=== PATIENT | male | born 1950 | race Hispanic/Latino ===

== ENCOUNTER → 2016-12-03 | Outpatient (CLI) | payer MEDICARE, OTHER | END | disposition home or self-care (01) | LOC: GMAL 10:11 | PROVIDERS: ATTEND Family Medicine | DX: D51.3 Other dietary vitamin B12 deficiency anemia (principal) ==

== ENCOUNTER 2017-04-15 17:51 | Inpatient (IN) | payer MEDICARE, OTHER ==
--- NOTE | 2017-04-15 17:53 | HP ---
HISTORY OF PRESENT ILLNESS: This 66 year-old male is a direct admission from Dr. Merlos' clinic where the patient was found to be quite light-headed getting worse for the last 3 days. He has had some bright red blood per rectum initially and then changing to dark bloody bowel movements for the last 3 days. He has had an episode of bleeding like this in years past but not recently. In the clinic, Dr. Merlos found that his blood pressure would drop about 18 points when he stood from a lying position and his pulse would increase by 10 points suggesting a borderline positive tilt test. His hemoglobin was 11.5 which is approximately 25% below his normal blood count. He has had a significant history of heart disease in the past and he does take a half of an aspirin daily which is now stopped. He is seen by Dr. Barrett, Materials Handler, in [place]. The patient is admitted to the hospital after discussion with Dr. Pichardo, GI specialist, who will be at the [facility] tomorrow morning. It is at that time that they are anticipating to do an upper and lower endoscopy. He has had a colonoscopy about 3 years ago and was scheduled for another one and there were no significant abnormalities at that time. PAST MEDICAL HISTORY: 1. Coronary artery disease with a myocardial infarction about 11 years ago requiring eventually 4 stents. 2. History of transient dark bowel movements and possible blood in the past years ago but no significant history of anemia. 3. History of chronic tobacco abuse having stopped smoking about 11 years ago but now still dipping snuff. 4. History of colonoscopy about 3 years ago. PAST SURGICAL HISTORY: CURRENT MEDICATIONS: Please refer to nurses' notes for a list of verified home medications. ALLERGIES: NONE NOTED. FAMILY HISTORY: Positive for coronary artery disease, emphysema, cancer and diabetes. 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 He stopped smoking about 11 years ago but has been using some snuff and dip since then, and encouraged to stop. REVIEW OF SYSTEMS: Some weight loss noted recently, especially when he had a tendency towards diabetes and he lost about 12 pounds in 1 week. No significant fever or chills. HEENT: Hearing and vision seems to be fairly normal. LUNGS: No significant shortness of breath, cough or hemoptysis. CARDIOVASCULAR: No significant chest pains or palpitations but he is quite light-headed for the last 3 days. GASTROINTESTINAL: No nausea, vomiting or blood in the emesis, but he has had some bright red bleeding and turning to black bowel movements for the last 3 days. GENITOURINARY: No dysuria. EXTREMITIES: No pedal edema. NEUROLOGIC: No focal weakness. No headaches. PHYSICAL EXAMINATION: VITAL SIGNS: See vitals and see weight when entered into the chart. HEENT: Unremarkable. Slight paleness of the conjunctiva. NECK: Supple with no adenopathy. CHEST: Lungs are generally clear to auscultation. CARDIOVASCULAR: Heart tones regular. Borderline tilt blood pressure in Dr. Merlos' office noted. ABDOMEN: No significant tenderness upon palpation, but the patient feels that there could be some slight abnormality, especially in the region of the stomach versus other parts of his abdomen. He has not had a bowel movement since coming into the hospital. EXTREMITIES: Well formed, good range of motion. Fairly good muscle tone evident. No pedal edema. NEUROLOGIC: No focal weakness. The patient is awake, alert and oriented, and communicative. General coloration generally within normal limits, though slightly pale on the conjunctiva. LABORATORY: Only laboratory results available at this time is the hemoglobin which was 11.[address] Merlos' clinic. Other studies are pending. Please refer to Orders and laboratory results. Chest x-ray is pending. EKG is pending. ASSESSMENT: 1. Acute gastrointestinal hemorrhage initially with hematochezia turning to melenic stool suggesting an upper gastrointestinal hemorrhage. 2. Significant anemia suggesting an approximate 25% of blood volume loss up to this point awaiting further studies to include kidney function and bleeding parameters. 3. History of coronary artery disease with at least 4 coronary stents and 1 or even 2 myocardial infarctions in close proximity about 11 years ago at which time his tobacco smoking stopped. 4. Moderate postural hypotension possibly related to a fairly significant gastrointestinal hemorrhage. 5. Probable renal insufficiency. PLAN: The patient is admitted to the hospital and will require support and close observation. He will notify us immediately if symptoms of light- headedness or near syncopal episodes are present and/or worsening. Await further gastrointestinal evaluation in the morning with endoscopy. Prep to be NPO after midnight with magnesium citrate to be given as a general prep as clear liquids are also offered for supper this evening. observe closely and refer for GI evaluation if GI bleeding is aggravated. Observe for H. pylori infection. #[id number] [facility]
[2017-04-15] MEDS ORDERED: SODIUM CHLORIDE 0.9% (FLUSH) 10 ML SYG IV PRN (18:28)
[2017-04-15] MEDS ORDERED: HYDROcodone 5MG/APAP 325MG 1 EA TAB PO PRN (18:31)
[2017-04-15] MEDS ORDERED: MAGNESIUM CITRATE 300 ML BTTL PO ONE (18:40)
[2017-04-15] MEDS ORDERED: IV SET AND CAP CHANGE INJ INJ SCH (19:00)
[2017-04-15] MEDS ORDERED: PANTOPRAZOLE SODIUM IV 40 MG VIAL IV SCH (19:00)
--- NOTE | 2017-04-15 19:07 | RAD ---
EXAM DESCRIPTION: Chest,2 Views CLINICAL HISTORY: 66 years Male GI Hemorrhage COMPARISON: None. FINDINGS: The cardiomediastinal silhouette appears unremarkable. No consolidating infiltrates or pleural effusions. No pneumothorax. Hemidiaphragms are flattened consistent with COPD. Coronary stents and calcification noted. IMPRESSION: No acute abnormality is identified. Pulmonary hyperinflation consistent with COPD Electronically signed by: Whitley Villaseñor 04/15/2017 7:05 PM CDT
[2017-04-15] MEDS ORDERED: SUCRALFATE 1 GM TAB PO ONE (19:26)
[2017-04-15] MEDS: SUCRALFATE 1 GM/10 ML 1 GM UD PO SCH ×2 (19:32→20:36)
[2017-04-15] MEDS: LEVALBUTEROL NEBS 1.25 MG/3 ML VIAL INH SCH ×2 (20:10→23:58)
[2017-04-15] MEDS ORDERED: SODIUM CHLORIDE 0.9% 500ML 500 ML IVS ONE (22:46)
[2017-04-15] MEDS: KCL 20 MEQ/NS 1,000 ML IVS PRN (23:26)
[2017-04-16] MEDS: KCL 20 MEQ/NS 1,000 ML IVS PRN ×2 (08:14→16:46)
[2017-04-16] MEDS: LEVALBUTEROL NEBS 1.25 MG/3 ML VIAL INH SCH (08:27)
[2017-04-16] MEDS ORDERED: PROPOFOL 200 MG/20 ML VIAL IV ONE (11:00)
[2017-04-16] MEDS ORDERED: LIDOCAINE 1% 10 ML VIAL INJ ONE (11:00)
--- NOTE | 2017-04-16 13:03 | OP ---
DATE OF PROCEDURE: 04/16/17 PREOPERATIVE DIAGNOSIS: 1. Hematochezia. 2. Gastrointestinal blood loss anemia. POSTOPERATIVE DIAGNOSIS: 1. Internal hemorrhoids. 2. Sigmoid diverticulosis. PROCEDURE: 1. Colonoscopy. SURGEON: Pola Pichardo MD. COMPLICATIONS: None apparent. BLOOD LOSS: None. MEDICATIONS: Monitored anesthesia care. DESCRIPTION OF PROCEDURE: Informed consent was obtained prior to sedation. The preprocedure cardiopulmonary assessment was satisfactory. The patient was placed in the left lateral decubitus position and was sedated. A digital rectal exam reveals no rectal masses or other abnormalities. His prostate is appropriately sized for his age. The tip of the Olympus colonoscope was inserted in the rectum and guided over to the cecum. The cecum was identified by locating the ileocecal valve and appendiceal orifice. Prep was overall satisfactory. There were a few areas of some residual semi-solid stool that I was able to irrigate and suction away to allow for good visibility. There was no red blood in the colon. There was no melena in the colon. The ileocecal valve was intubated and the terminal ileum was clear without any evidence of bloody material. The mucosa of the cecum, ascending colon, hepatic flexure, transverse colon, splenic flexure, descending colon and sigmoid colon was closely examined. The patient has some diverticulosis scattered throughout the colon, predominantly on the left side. The patient has some internal hemorrhoids. Otherwise, his colonoscopy was unremarkable. The procedure was then terminated. RECOMMENDATIONS: 1. I have discussed the findings with Dr. Yoni Merlos, his physician. I would advance his diet and give him a daily oral proton pump inhibitor just in case the bleeding was an upper source. 2. If the bleeding recurs or persists and it looks like it could be an upper source, then I would recommend an EGD. #[id number] cc: Yoni Merlos MD [facility]
[2017-04-16] MEDS: POTASSIUM CHLORIDE 10 MEQ TAB PO SCH ×2 (13:26→17:55)
[2017-04-16] MEDS: LEVALBUTEROL NEBS 1.25 MG/3 ML VIAL NEB SCH (16:43)
--- NOTE | 2017-04-16 18:33 | PN ---
DATE: 04/16/17 SUPERVISING PHYSICIAN: Ortega Bond M.D. SUBJECTIVE: The patient just returned from colonoscopy. He is alert in no distress. Has no nausea or vomiting. OBJECTIVE: VITAL SIGNS: Temperature 98.6, pulse 78, blood pressure 127/72, respirations 18, satting 98% on room air. I's and O's show a negative balance of 1100 with 400 in, 1500 out. Weight 69.6 kg. CHEST: Lungs are clear to auscultation bilaterally. HEART: Regular rate and rhythm. ABDOMEN: Soft, non- tender. Positive bowel sounds. EXTREMITIES: No clubbing, cyanosis or edema. NEUROLOGIC: He is alert and oriented times three. LABORATORY: White count today is 8.0, hemoglobin is down to 9.9, hematocrit 29.0, platelet count 169,000. Differential shows to be without a left shift now. Chemistries show normal electrolytes with potassium 3.7, BUN 38 compared to 59 on admission and creatinine is down to 1.05. Glucose 121, calcium 8.2. Lipid panel showed 172 on triglycerides, cholesterol 114, LDL 57, HDL 31. He has had 2 occult bloods that were positive and he has had H. pylori that was positive. PROCEDURES: Colonoscopy performed by Dr. Pola Pichardo. Please see his Operative Note for full details. RADIOLOGY: There are no additional radiographic studies for review. ASSESSMENT: 1. Hematochezia with some gastrointestinal blood loss and anemia with findings of internal hemorrhoids by colonoscopy. 2. Sigmoid diverticulosis without evidence of diverticulitis. 3. History of coronary artery disease with at least 4 coronary artery stents and 1 or 2 myocardial infarctions in close proximity within the last 11 years at which time his tobacco smoking ceased. 4. Moderate postural hypotension possibly related to fairly significant gastrointestinal hemorrhage although colonoscopy was essentially normal as noted on operative report. 5. Mild renal insufficiency secondary to prerenal azotemia, improved with IV fluids. PLAN: Will plan to advance his diet today as per recommendations of Dr. Pichardo and ensure that he remains on a daily oral proton pump inhibitor. Will continue to closely observe and repeat laboratory studies in the morning to further monitor H&H with anticipation of discharging him tomorrow to have close clinical followup with Dr. Merlos. Should he continue to show blood loss, Dr. Pichardo has recommended that the patient have an EGD. Until discharge, will continue to monitor and treat appropriately. [facility][id number] [facility]
[2017-04-16] MEDS ORDERED: PANTOPRAZOLE SODIUM IV 40 MG VIAL IV SCH (21:00)
[2017-04-16] MEDS ORDERED: POTASSIUM CHLORIDE 10 MEQ TAB PO ONE ×3 (21:00→23:00)
[2017-04-17] MEDS: LEVALBUTEROL NEBS 1.25 MG/3 ML VIAL NEB SCH ×2 (00:30→08:48)
[2017-04-17] MEDS: KCL 20 MEQ/NS 1,000 ML IVS PRN (01:07)
[2017-04-17] MEDS: POTASSIUM CHLORIDE 10 MEQ TAB PO SCH (07:36)
[2017-04-17 09:13] VITALS: BP 148/63; TEMP 98; O2SAT 98
--- NOTE | 2017-04-22 09:24 | DS ---
SUPERVISING PHYSICIAN: Ortega Bond MD DISCHARGE DIAGNOSIS: 1. Hematochezia with some gastrointestinal blood loss and anemia with findings of internal hemorrhoids by colonoscopy performed by Dr. Pichardo. 2. Sigmoid diverticulosis without evidence of diverticulitis. 3. History of coronary artery disease with at least 4 coronary artery stents and 1 or 2 myocardial infarctions in close proximity within the last 11 years at which time his tobacco smoking ceased. 4. Moderate postural hypotension, possibly related to fairly significant gastrointestinal hemorrhage although colonoscopy was essentially normal as noted on operative report and the patient had stable hemoglobin and hematocrit and had no recurrence of any hypotension. 5. Mild renal insufficiency secondary to prerenal azotemia, improved with IV fluids. HISTORY OF PRESENT ILLNESS: Mr. Kirk is a 66-year-old male who was a direct admission from Dr. Merlos' clinic where the patient was found to be quite light-headed getting worse for the previous 3 days. He had noted some bright red blood per rectum initially and then changing to dark bloody bowel movements for at least 3 days. He had had an episode of bleeding like this in years past , but not recently. In the clinic, Dr. Merlos found that his blood pressure would drop about 18 points when he stood from a lying position and his pulse would increase by 10 points suggesting a borderline positive tilt test. His hemoglobin was 11.5 which is approximately 25% below his normal blood count. He has had a significant history of heart disease in the past and he does take a half of an aspirin daily which is now stopped. He is seen by Dr. Barrett, historiography teacher, in [place]. The patient was admitted to the hospital per discussion with Dr. Pichardo, GI specialist, who performed a colonoscopy. His last colonoscopy was 3 years previous to this admission and at that time there were no significant abnormalities noted. LABORATORY: White count on admission was 10.9, at discharge was 7.8. Hemoglobin initially on admission was 11.3, hematocrit 33.5. At discharge, 9.0 and 27.0. Platelet count 161,000. Differential was without a left shift. Coagulation studies showed normal PT, PT-T. Chemistries showed normal electrolytes with initial BUN 59, creatinine 1.45 after fluids. At discharge, electrolytes were within normal limits. BUN 15, creatinine 0.91, glucose 102. Troponins were less than 0.02. Liver functions were within normal limits. Lipid panel showed triglycerides elevated at 172, cholesterol 114, LDL 57, HDL 31. Urinalysis was within normal limits. He had two positive occult bloods and positive H. pylori antibody. MICROBIOLOGY: No specimens submitted. CONSULTATIONS/PROCEDURES: Colonoscopy performed by Dr. Pichardo. Please see his operative report for full details and findings. HOSPITAL COURSE: Mr. Kirk was admitted to the hospital as noted in history of present illness for followup with Dr. Pichardo and colonoscopy. The patient remained stable. He did have several occult bloods positive, but no gross hematochezia and colonoscopy was performed without any complications. The patient remained stable after fluids. His blood pressure on admission initially was 128/66. At discharge, it was 148/63. Heart rate remained in 80s and 90s. He remained afebrile. T-max 98.6. It was felt hemoglobin and hematocrit were showing significant stability and based on colonoscopy findings , the patient was discharged to followup with Dr. Merlos. PLAN: Mr. Kirk was discharged on 04/17/17 to have close clinical followup with Dr. Merlos in 2 weeks. He was to resume his home medications as instructed and to no take any NSAIDs such as Motrin, aspirin or ibuprofen. He was to start new prescriptions as directed and return to the hospital should he have any return of his symptoms. DISCHARGE MEDICATIONS: 1. Proton pump inhibitor, Prilosec 20 mg twice daily, #60. All other medications were resumed as prior to admission. Diet at discharge was usual diet. Activity to increase as tolerated. Discharge condition was stable and improved. #[id number] [facility]
== END 2017-04-17 12:59 | disposition home or self-care (01) | DRG 378 ==
LOC: MS 17:51
PROVIDERS: ADMIT Emergency Medicine; ATTEND Nurse Practitioner Family
PROC: 0DJD8ZZ Inspection of Lower Intestinal Tract, Via Natural or Artificial Opening Endoscopic (ICD-10-PCS; principal; 2017-04-15)
DX: K92.1 Melena (principal); D62 Acute posthemorrhagic anemia; K64.8 Other hemorrhoids; K57.30 Diverticulosis of large intestine without perforation or abscess without bleeding; I25.10 Atherosclerotic heart disease of native coronary artery without angina pectoris; N28.9 Disorder of kidney and ureter, unspecified; I95.1 Orthostatic hypotension; B96.81 Helicobacter pylori [H. pylori] as the cause of diseases classified elsewhere; F17.290 Nicotine dependence, other tobacco product, uncomplicated; I25.2 Old myocardial infarction; Z79.82 Long term (current) use of aspirin; Z95.5 Presence of coronary angioplasty implant and graft

== ENCOUNTER → 2017-05-01 | Outpatient (CLI) | payer MEDICARE, OTHER | END | disposition home or self-care (01) | LOC: GMAL 10:26 | PROVIDERS: ATTEND Family Medicine | DX: D53.9 Nutritional anemia, unspecified (principal); M10.071 Idiopathic gout, right ankle and foot ==

== ENCOUNTER → 2017-06-17 | Outpatient (CLI) | payer MEDICARE, OTHER | END | disposition home or self-care (01) | LOC: GMAL 10:44 | PROVIDERS: ATTEND Family Medicine | DX: D53.9 Nutritional anemia, unspecified (principal); Z12.5 Encounter for screening for malignant neoplasm of prostate | CPT/HCPCS: 82728; 83540; 83550; G0103 ==

== ENCOUNTER → 2018-05-08 | Outpatient (CLI) | payer MEDICARE, OTHER ==
--- NOTE | 2018-05-08 16:01 | MRI ---
EXAM DESCRIPTION: Lumbar Spine w/o Contrast : Magnetic Resonance Imaging. CLINICAL HISTORY: RADICULOPATHY COMPARISON: None. TECHNIQUE: Multiplanar, multiple standard sequences, non contrast MRI, lumbar spine. FINDINGS: L5-S1: Minimal desiccation of the disc. Posterior midline tiny broad-based bulge abutting the thecal sac. Soft tissue density, possibly disc material extending into the left subarticular recess and abutting the descending left S1 nerve. Mild canal narrowing. Bilateral disc bulging into the foramina with mild narrowing on the left and moderate narrowing on the right. Minimal hypertrophy of the ligaments. L4-5: Disc desiccation and minimal disc space loss. Anterior disc bulge. Trace anterolisthesis. Bilateral flavum ligament hypertrophy. AP canal diameter 8 mm. Bulging disc is abutting the exiting right L4 nerve in the foramen which is nearly stenotic. Left foramen is patent. L3-4: Disc desiccation with anterior bulging and endplate ridging. Minimal disc space loss. Anterior Modic type II endplate reactive changes. Minimal flavum ligament hypertrophy posterior. Facets are unremarkable. Moderate canal narrowing. Bilateral foramina are patent. L2-3: Minimal disc desiccation. Tiny posterior bulge. Tiny anterior bulge. Posterior elements unremarkable. Canal and foramina are patent. L1-2: Normal signal in the disc. Disc space maintained. Posterior elements unremarkable. Canal and foramina are patent. T12-L1: Disc space maintained. Normal signal in the disc. Posterior elements unremarkable. Canal and foramina are patent. Conus terminates at this level. Anatomic curvature. Paravertebral soft tissues are negative. AP diameter of the aorta at the origin of the inferior mesenteric artery is 2.5 cm.. Normal marrow signal in the remaining vertebral bodies and the posterior elements. Vertebral bodies are not compressed at any level. IMPRESSION: 1. Desiccated bulging L5-S1 disc with possible focal inferior extrusion encroaching on the left subarticular recess and abutting this is impinging the descending left S1 nerve root. Bilateral disc bulge into the foramina. 2. Posterior element hypertrophy contributing to mild central canal stenosis at the L4-5 level. Trace anterolisthesis. 3. Anterior moderate spondylosis. No significant canal or foraminal narrowing. Electronically signed by: Preston South MD 05/08/2018 4:00 PM CDT
== END ==
LOC: MRI 06:52
PROVIDERS: ATTEND Family Medicine
DX: M51.16 Intervertebral disc disorders with radiculopathy, lumbar region (principal); M47.26 Other spondylosis with radiculopathy, lumbar region; M43.16 Spondylolisthesis, lumbar region

== ENCOUNTER → 2018-08-04 | Outpatient (CLI) | payer MEDICARE, OTHER | LOC: GMAL 11:35 | PROVIDERS: ATTEND Family Medicine | DX: Z12.5 Encounter for screening for malignant neoplasm of prostate (principal) ==

== ENCOUNTER → 2018-09-18 | Outpatient (CLI) | payer MEDICARE, OTHER | LOC: GMAL 10:30 | PROVIDERS: ATTEND Family Medicine | DX: M10.9 Gout, unspecified (principal) ==

== ENCOUNTER → 2019-07-06 | Outpatient (CLI) | payer MEDICARE, OTHER ==
--- NOTE | 2019-07-06 15:24 | CT ---
EXAM DESCRIPTION: CTA Neck: Computed Tomography. CLINICAL HISTORY: CAROTID STENOSIS COMPARISON: CTA neck September 2014. TECHNIQUE: Spiral, axial 2.5 x 2.5 mm scans through the neck soft tissues after bolus infusion of 100 mL Optiray 320 IV contrast. 2.0 mm sagittal and coronal reconstructions. HID MIP images 0.6 mm rotating axis 3D volume rendering images 0.6 mm rotating axis . Percentage of stenosis recorded will be based upon NASCET criteria. Total Exam DLP: 419.10 mGy-cm. This exam was performed according to our departmental CT dose-optimization program which includes automated exposure control, adjustment of the mA and/or kV according to patient size and/or use of iterative reconstruction technique; to reduce radiation dose to as low as reasonably achievable (ALARA). FINDINGS: Intermittent calcification in the left common carotid with intimal wall thickening. Multiple atherosclerotic calcifications at the bifurcation with diameter Stenosis at the bifurcation approximately 31 %. Minimal calcification in the proximal ECA is well. Minimal calcification in the distal left carotid siphon but no significant stenosis. Intracranial segment and bifurcation is unremarkable. Minimal atherosclerotic narrowing of these vessels without calcification. No posterior communicating artery is visualized. Typical origin of the right common carotid artery from the right innominate artery with scattered atherosclerotic calcification including the bifurcation and the proximal ICA. Diameter stenosis of the proximal right ICA is 47%. Minimal narrowing of the proximal right ECA. Minimal calcification in the distal carotid siphon. The cranial segment with minimal narrowing and bifurcation unremarkable. No calcifications. Posterior communicating artery joints with the right posterior cerebral artery from the basilar artery. Typical origins of the bilateral vertebral arteries from the subclavian arteries. Severe stenosis and calcification of the proximal right vertebral artery inferior to the bilateral vertebral foramen. Approximately 50% diameter stenosis of the left vertebral artery just before entering the left transverse foramen with bilateral atherosclerotic calcification in the foramina more on the left than right. Vertebral arteries are relatively symmetric entering the skull base. Bilateral PICA arteries, AICA arteries, and posterior cerebellar arteries visualized. Basilar artery supplies the left posterior cerebral artery and right posterior cerebral artery receives contributions from the right posterior communicating artery and the basilar artery. In the anterior and posterior circulation, no aneurysm, no significant stenosis, no mass effect, no vasculitis. Included apices of the bilateral lungs showing blebs and bulla abutting the pleura more on the right than left as well as centrilobular blebs. No abnormal soft tissue enhancement or adenopathy in the neck base, paracervical space, carotid space, or parapharyngeal space. Heterogeneous enhancement of the thyroid gland. Scattered lymph nodes bilaterally abutting the parotid and submandibular glands. The nasopharynx, oropharynx, hypopharynx, and larynx/glottis and upper trachea normal caliber with no effacement or abnormal enhancement or displacement. Arthrosis in the atlantoaxial joint and the bilateral atlantooccipital joints. No significant cervical spondylosis. Minimal anterior wedging of the C7 vertebral body with no posterior retropulsion or disc space loss. IMPRESSION: 1. No significant stenoses in the bilateral common carotid bifurcations, or bilateral ICA in the neck and head by NASCET criteria. Minimal atherosclerotic narrowing in the intracranial vault at the skull valley Zelaya. 2. Significant diameter stenosis, 75-100% in the proximal right vertebral artery with contrast reflux/reconstitution distal to the stenosis. Bilateral vertebral arteries symmetric in the skull base. Right posterior cerebral arteries supplied by branches from the basilar artery and right posterior communicating artery. No significant stenoses around the skull valley Zelaya, and no aneurysms, no mass effect, and no vasculitis, Electronically signed by: Preston South MD 07/06/2019 3:22 PM CDT
== END ==
LOC: CT 09:00
PROVIDERS: ATTEND Family Medicine
DX: I65.23 Occlusion and stenosis of bilateral carotid arteries (principal)

== ENCOUNTER → 2019-08-10 | Outpatient (CLI) | payer MEDICARE, OTHER | LOC: GMAL 11:25 | PROVIDERS: ATTEND Family Medicine | DX: Z12.5 Encounter for screening for malignant neoplasm of prostate (principal); I10 Essential (primary) hypertension; E78.49 Other hyperlipidemia; Z79.899 Other long term (current) drug therapy ==

== ENCOUNTER → 2020-02-18 | Outpatient (CLI) | payer MEDICARE, OTHER ==
--- NOTE | 2020-02-18 17:17 | MRI ---
EXAM DESCRIPTION: Cervical Spine CLINICAL HISTORY: RADICULOPATHY COMPARISON: CT neck Angio July 06, 2019 TECHNIQUE: MRI of the cervical spine is performed according to our usual protocol. FINDINGS: Sagittal T2 images reveal decreased signal intensity within the intervertebral discs. Normal T2 appearance of the cervical cord. Posterior discal abnormalities are mild at C5-6 and C6-7. Sagittal T1 images show benign marrow signal characteristics. Fragmented appearance of the tip of the dens appears chronic. Normal T1 appearance of the cervical and upper thoracic spinal cord. Normal alignment of the vertebral bodies and facets. Sagittal STIR images are negative for high signal intensity marrow edema within the vertebral bodies or posterior elements. No high signal intensity in the region of the dens to suggest that the deformity is not acute fracture. No paraspinous fluid collection or cystic lesion. Axial images were obtained to evaluate the disc levels. C2-3: Normal posterior disc margin with no spinal stenosis or neural foraminal narrowing. [id number] facet hypertrophic spurring bilaterally right more than left. Normal appearance of the cord at this level. C3-4: Mild posterior annular bulge without spinal stenosis. Moderate right neural foraminal narrowing related to facet and uncinate hypertrophic spurring. Left neural foramen is widely patent. Normal appearance of the cord at this level. C4-5: Minimal posterior annular bulge without spinal stenosis. Moderate right and mild left neural foraminal narrowing related to uncinate more than facet hypertrophic spurring. Normal appearance of the cord at this level. C5-6: Minimal posterior annular bulge with superimposed left paracentral protrusion measuring 2 mm in AP dimension with slight ventral cord contouring. No significant spinal stenosis with AP diameter of the spinal canal measuring 1 cm. Mild left neural foraminal narrowing related to uncinate hypertrophy. Minimal facet hypertrophic changes. C6-7: Minimally prominent posterior disc margin with no spinal stenosis. Minimal left neural foraminal narrowing related to uncinate hypertrophy. Normal appearance of the facets. Normal appearance of the cord at this level. C7-T1: Normal posterior disc margin with no spinal stenosis or significant neural foraminal narrowing. Facets appear normal. Normal appearance of the cord at this level. IMPRESSION: Small C5-C6 left paracentral disc protrusion 2 mm without significant spinal stenosis. Fragmented appearance of the tip of the dens consistent with old trauma. Electronically signed by: Rehan Sena MD 02/18/2020 5:15 PM CDT
== END ==
LOC: MRI 13:42
PROVIDERS: ATTEND Family Medicine
DX: M50.13 Cervical disc disorder with radiculopathy, cervicothoracic region (principal); M50.222 Other cervical disc displacement at C5-C6 level; M89.8X8 Other specified disorders of bone, other site

== ENCOUNTER → 2020-06-08 | Outpatient (CLI) | payer MEDICARE, OTHER | LOC: GMAL 11:59 | PROVIDERS: ATTEND Family Medicine | DX: I10 Essential (primary) hypertension (principal); E78.49 Other hyperlipidemia; Z13.29 Encounter for screening for other suspected endocrine disorder; M10.071 Idiopathic gout, right ankle and foot; Z79.899 Other long term (current) drug therapy ==